=== PATIENT | male | born 1990 | race Two or more races ===

== ENCOUNTER 2023-04-19 17:59 | Emergency (ER) | payer OTHER ==
[~2023-04-19] VITALS: Ht 170.2 cm; Wt 59.9 kg
== END 2023-04-19 21:59 | disposition home or self-care (01) ==
LOC: ER 17:59
DX: S92.515A Nondisplaced fracture of proximal phalanx of left lesser toe(s), initial encounter for closed fracture (principal); V19.9XXA Pedal cyclist (driver) (passenger) injured in unspecified traffic accident, initial encounter; Y93.89 Activity, other specified; Y92.89 Other specified places as the place of occurrence of the external cause; Y99.9 Unspecified external cause status

== ENCOUNTER 2023-10-31 17:49 | Emergency (ER) | payer OTHER ==
[~2023-10-31] VITALS: Ht 162.6 cm; Wt 48.1 kg
== END 2023-10-31 19:35 | disposition home or self-care (01) ==
LOC: ER 17:51
DX: S61.213A Laceration without foreign body of left middle finger without damage to nail, initial encounter (principal); X58.XXXA Exposure to other specified factors, initial encounter; Y93.G3 Activity, cooking and baking; Y92.89 Other specified places as the place of occurrence of the external cause; Y99.8 Other external cause status